=== PATIENT | male | born 1930 | race Caucasian/White ===

== ENCOUNTER → 2018-09-15 | Outpatient (CLI) | payer OTHER ==
[~2018-09-15] MED LIST: ALBUTEROL NEB INH; ASPIRIN EC81 M1 PO; BENZONATATE PO; BROVANA15 MCG/2 M INH; BROVANA15 MCG/2 M NASAL; CENTRUM SILVER1 EAC4 PO; CENTRUM TABLET1 EACH PO; DOXYCYCLINE 10100 MG PO; ENALAPRIL MALEA20 MG PO; FLOMAX0.4 MG PO; HYDROCODON-ACE1 EAC7 PO; I-CAPS AREDS S1 EACH PO; LEVAQUIN 750 M750 MG PO; LEVOFLOXACIN750 MG PO; LEVOTHYROXIN0.025 MG PO; LIDODERM 5%1 PATC1 TOP; LIPITOR10 MG PO; LISINOPRIL-HCT1 EACH PO; MEDROL DOSPAK21 TA1; MELOXICAM7.5 MG PO; MOBIC15 MG PO; NABUMETONE 500500 M1 PO; NEURONTIN 300300 M1 PO; NEURONTIN 400400 M1 PO; NEURONTIN 400M400 M2 PO; NICOTINE TRANSD14 M1 TRANSDERM; NORCO 7.5-3251 EACH PO; PRAVACHOL40 MG PO; PULMICORT0.5 MG/2 M INH; TAMSULOSIN HCL0.4 M1 PO; TOBRAMYCIN SULFA5 ML OPHTHALMIC; VITAMIN B-12100 MC1 PO; VITAMIN D-32000 UNIT PO; VITAMIN D1000 UNI1 PO; VITAMIN D31000 UNI2 PO; VITAMIN E400 UNIT PO; XANAX 0.25 MG0.25 MG PO; ZPAK PO
== END ==
LOC: RAD 13:27
DX: R91.8 Other nonspecific abnormal finding of lung field (principal)